=== PATIENT | male | born 1990 | race African-American/Black ===

== ENCOUNTER → 2020-11-30 16:32 | Outpatient (CLI) | payer OTHER, SELFPAY ==
--- NOTE | 2020-11-30 16:38 | RAD_ITS ---
INDICATION: right lateral ankle pain EXAMINATION/TECHNIQUE: X-RAY - RIGHT XR Ankle Min 3 Views COMPARISON: None. FINDINGS: No acute fracture or malalignment. Small oval sclerotic lesion in the medial malleolus is most likely a bone island. No degenerative changes are seen. The soft tissues are unremarkable. RAD/Ankle min 3 Views IMPRESSION: No acute radiographic abnormalities. Electronically Signed: Juan Carlos Stover MD at 17:15 EDT Tel , Service support ,
== END ==
PROVIDERS: PCP Nurse Practitioner Family; Referring Provider Physician Assistant; Visit Provider Physician Assistant
DX: M25.571 Pain in right ankle and joints of right foot (principal)
CPT/HCPCS: 73610